=== PATIENT | female | born 1950 | race American Indian/Alaskan Native ===

== ENCOUNTER 2017-04-19 07:58 | Outpatient (CLI) | payer MEDICARE, OTHER ==
--- NOTE | 2017-04-19 09:51 | Mammography Report ---
Bilateral mammogram: Compared to 04/17/16. CAD study utilized. Findings: Predominance adipose tissue bilaterally. Focal new dense asymmetry noted in subareolar area left breast and right breast. No microcalcification. Benign axilla. No microcalcification. Impression: Focal new density cement is bilaterally. Recommend spot mag and sonographic examination. BI-RADS CATEGORY: 0 = Needs additional imaging evaluation ACR BI-RADS MAMMOGRAPHIC CODES: 0 = Needs additional imaging evaluation; 1 = Negative; 2 = Benign; 3 = Probably benign; 4 = Suspicious; 5 = Malignant; 6 = Known biopsy-proven malignancy COMMENT: 1. Dense breast tissue, i.e., adenosis, fibrocystic changes, etc., may obscure an underlying neoplasm. 2. Approximately 10% of cancers are not detected with mammography. 3. A negative mammography report should not delay biopsy if a clinically suspicious mass is present. COMMENT: Patient follow-up letters are generated in [employer].
== END 2017-04-19 07:59 | disposition home or self-care (01) ==
LOC: MAMMO 07:58
PROVIDERS: ATTEND Advanced Practice Midwife
DX: Z12.31 Encounter for screening mammogram for malignant neoplasm of breast (principal)
CPT/HCPCS: 77067; G0202

== ENCOUNTER 2017-05-03 08:20 | Outpatient (CLI) | payer MEDICARE, OTHER ==
--- NOTE | 2017-05-03 09:04 | Mammography Report ---
Bilateral mammogram: Additional views of both breasts with spot compressions were obtained for asymmetry as described on recent screening exam. The additional images however when compared to prior studies of 2015 and 2016 do not demonstrate any significant change in the parenchymal pattern and the asymmetries are no longer identified. Impression: Stable breast pattern. Recommendation: Annual mammogram followup. BI-RADS CATEGORY: 1 = Negative ACR BI-RADS MAMMOGRAPHIC CODES: 0 = Needs additional imaging evaluation; 1 = Negative; 2 = Benign; 3 = Probably benign; 4 = Suspicious; 5 = Malignant; 6 = Known biopsy-proven malignancy COMMENT: 1. Dense breast tissue, i.e., adenosis, fibrocystic changes, etc., may obscure an underlying neoplasm. 2. Approximately 10% of cancers are not detected with mammography. 3. A negative mammography report should not delay biopsy if a clinically suspicious mass is present.
== END 2017-05-03 08:21 | disposition home or self-care (01) ==
LOC: MAMMO 08:20
PROVIDERS: ATTEND Family Medicine
DX: R92.8 Other abnormal and inconclusive findings on diagnostic imaging of breast (principal)
CPT/HCPCS: 77066; G0204

== ENCOUNTER 2019-05-26 10:57 | Outpatient (CLI) | payer MEDICARE, OTHER ==
--- NOTE | 2019-05-27 08:01 | Mammography Report ---
DIGITAL SCREENING MAMMOGRAM WITH CAD, 05/26/2019 INDICATION: Routine screening mammography. TECHNIQUE: Digital bilateral 2D mammography was obtained in the craniocaudal and mediolateral obliq ue projections. This examination was interpreted with the benefit of Computer-Aided Detection analysi s. COMPARISON: 05/19/2018 FINDINGS: Breast Density: The breasts are heterogeneously dense, which may obscure small masses. There is no evidence of dominant mass, suspicious calcifications or architectural distortion in eithe r breast. IMPRESSION: No mammographic evidence of malignancy. Follow up recommendation: Routine yearly BI-RADS Category 1: Negative. A "normal" or negative report should not discourage follow up or biopsy of a clinically significant f inding. A written summary of these findings will be mailed to the patient. The patient will be entered into a mammography reporting system which will generate a reminder letter for the patient's next appointmen t at the appropriate interval. The [employer] recommends yearly mammograms starting at age 40 and continuing as l marlena as a woman is in good health. Breast MRI is recommended for women with an approximate 20-25% or greater lifetime risk of breast cancer, including women with a strong family history of breast or ova ace cancer or who have been treated for Hodgkin's disease. Signer Name: Akil Gandhi MD Signed: 05/27/2019 7:57 AM Workstation Name: [id number]
== END 2019-05-26 10:58 | disposition home or self-care (01) ==
LOC: MAMMO 10:57
PROVIDERS: ATTEND Internal Medicine
DX: Z12.31 Encounter for screening mammogram for malignant neoplasm of breast (principal); I10 Essential (primary) hypertension; K21.9 Gastro-esophageal reflux disease without esophagitis
CPT/HCPCS: 77067

== ENCOUNTER 2020-04-06 11:00 | Observation (INO) | payer MEDICARE, OTHER ==
[2020-04-06] MEDS ORDERED: ASPIRIN 325 MG TAB PO ONE (11:08)
[2020-04-06 11:35] LABS: Basophils # (Auto) 0.1 K/mm3 (0.0-0.1); Basophils % (Auto) 0.7 % (0.0-1.8); Eosinophils % (Auto) 0.2 % (0.0-4.3); Hemoglobin 12.4 gm/dl (10.1-14.3); Lymphocytes # (Auto) 3.1 K/mm3 (1.2-5.4); Lymphocytes % (Auto) 29.8 % (13.4-35.0); Mean Corpuscular HGB Conc 34 % (30-34); Mean Corpuscular Volume 92 fl (79-97); Monocytes # (Auto) 0.8 K/mm3 (0.0-0.8); Monocytes % (Auto) 7.4 % (0.0-7.3); Platelet Count 257 K/mm3 (140-440); Red Blood Count 4.04 M/mm3 (3.65-5.03); Red Cell Distribution Width 14.3 % (13.2-15.2)
[2020-04-06] MEDS ORDERED: cloNIDine 0.2 MG TAB PO ONE (11:41)
[2020-04-06] MEDS ORDERED: NITROGLYCERIN 2% OINT 1 GM TP ONE (11:41)
[2020-04-06] MEDS ORDERED: ONDANSETRON 4 MG/2 ML INJ IV ONE (11:49)
[2020-04-06] MEDS ORDERED: MORPHINE 4 MG/1 ML INJ IV ONE (11:49)
--- NOTE | 2020-04-06 11:53 | XRay Report ---
CHEST 1 VIEW INDICATION: Chest Pain. COMPARISON: None FINDINGS: Support devices: None. Heart: Within normal limits. Lungs/Pleura: No acute air space or interstitial disease. Additional findings: None. IMPRESSION: No acute findings. Signer Name: Shaw Black Jr, MD Signed: 04/06/2020 11:48 AM Workstation Name: [id number]
[2020-04-06 11:55] LABS: BUN/Creatinine Ratio 22; Blood Urea Nitrogen 35 mg/dL (7-17); Calcium 10.6 mg/dL (8.4-10.2); Hemolysis Index 1
--- NOTE | 2020-04-06 11:57 | Emergency Department Report ---
HPI - General Chief Complaint: Chest Pain Time Seen by Provider: 04/06/20 11:40 - HPI HPI: Room 3 The patient is a 69-year-old female present with a chief complaint of chest pain. The patient states this morning while at rest she developed sharp left-s ided chest pain that radiated to the left shoulder. Patient states the pain has been intermittent and she currently gives it a score of 2/10. Patient denies shortness of breath, nausea/vomiting or diaphoresis with her chest pain. The patient states her last stress test occurred 1 to 2 years ago but she is never had a cardiac catheterization ED Past Medical Hx - Past Medical History Hx Hypertension: Yes Hx Diabetes: Yes (NIDDM) Hx GERD: Yes - Surgical History Past Surgical History?: No Additional Surgical History: Right Hand - Family History Family history: no significant - Social History Smoking Status: Never Smoker Substance Use Type: None ED Review of Systems ROS: Stated complaint: CHEST PAIN Other details as noted in HPI Constitutional: denies: diaphoresis Eyes: denies: eye pain ENT: denies: throat pain Respiratory: denies: shortness of breath Cardiovascular: chest pain Endocrine: no symptoms reported Gastrointestinal: denies: nausea, vomiting Physical Exam - Physical Exam Vital Signs: Vital Signs 04/06/20 11:10 Temperature 97.8 F Pulse Rate 89 Respiratory 18 Rate Blood Pressure 197/78 O2 Sat by Pulse 92 Oximetry Physical Exam: GENERAL: The patient is well-developed well-nourished female lying on stretcher not appearing to be in acute distress. [] HEENT: Normocephalic. Atraumatic. Extraocular motions are intact. Patient has moist mucous membranes. NECK: Supple. No trachea midline CHEST/LUNGS: Clear to auscultation. There is no respiratory distress noted. HEART/CARDIOVASCULAR: Regular. There is no tachycardia. There is no gallop rub or murmur. 2+ radial pulses bilaterally ABDOMEN: Abdomen is soft, nontender. Patient has normal bowel sounds. There is no abdominal distention. SKIN: There is no rash. There is no edema. There is no diaphoresis. NEURO: The patient is awake, alert, and oriented. The patient is cooperative. The patient has normal speech MUSCULOSKELETAL: There is no evidence of acute injury. ED Course Vital Signs 04/06/20 11:10 Temperature 97.8 F Pulse Rate 89 Respiratory 18 Rate Blood Pressure 197/78 O2 Sat by Pulse 92 Oximetry ED Medical Decision Making - Lab Data Result diagrams: 04/06/20 11:18 04/06/20 11:18 Laboratory Tests 04/06/20 04/06/20 11:18 11:18 WBC 10.3 RBC 4.04 Hgb 12.4 Hct 37.0 MCV 92 MCH 31 MCHC 34 RDW 14.3 Plt Count 257 Lymph % (Auto) 29.8 [place] % (Auto) 7.4 H Eos % (Auto) 0.2 Baso % (Auto) 0.7 Lymph # 3.1 [place] # 0.8 Eos # 0.0 Baso # 0.1 Seg Neutrophils % 61.9 Seg Neutrophils # 6.3 Sodium 136 L Potassium 3.7 Chloride 95.9 L Carbon Dioxide 25 Anion Gap 19 BUN 35 H Creatinine 1.6 H Estimated GFR 39 BUN/Creatinine Ratio 22 Glucose 166 H Calcium 10.6 H Troponin T < 0.010 - EKG Data -: EKG Interpreted by Me EKG shows normal: sinus rhythm Rate: normal - EKG Data When compared to previous EKG there are: previous EKG unavailable Interpretation: other (No ischemic changes seen) - Radiology Data Radiology results: report reviewed (Chest x-ray), image reviewed (Chest x-ray) interpreted by me: Chest x-ray-no focal infiltrates, no pneumothorax, no foreign body [address] [address] XRay Report Signed Patient: BAO DIAZ MR#: [id number] : 1950 Acct:[id number] Age/Sex: 69 / F ADM Date: 04/06/20 Loc: ED Attending Dr: Ordering Physician: SHARA ALONZO MD Date of Service: 04/06/20 Pr ocedure(s): XR chest 1V ap Accession Number(s): [id number] cc: SHARA ALONZO MD Fluoro Time In Minutes: CHEST 1 VIEW INDICATION: Chest Pain. COMPARISON: None FINDINGS: Support devices: None. Heart: Within normal limits. Lungs/Pleura: No acute air space or interstitial disease. Additional findings: None. IMPRESSION: No acute findings. Signer Name: Shaw Guerrero Jr, MD Signed: 04/06/2020 11:48 AM Workstation Name: [id number] Transcribed By: TTR Dictated By: SHAW GUERRERO JR, MD Electronically Authenticated By: SHAW GUERRERO JR, MD Signed Date/Time: 04/06/20 1148 DD/ TD/TT: - Differential Diagnosis ACS, pericarditis, GERD Critical care attestation.: If time is entered above; I have spent that time in minutes in the direct care of this critically ill patient, excluding procedure time. ED Disposition Clinical Impression: Chest pain Disposition: OP ADMIT IP TO THIS HOSP Is pt being admited?: Yes Does the pt Need Aspirin: Yes Condition: Fair Instructions: Chest Pain (ED) Time of Disposition: 12:16 (Hospitalist paged) HEART Score - HEART Score History: Moderately suspicious EKG: Normal Age: > 65 Risk factors: 1-2 risk factors Troponin: < normal limit HEART Score: 4
--- NOTE | 2020-04-06 13:48 | History and Physical Report ---
History of Present Illness Chief complaint: My chest hurts History of present illness: 69 YO Female with HTN, DM, GERD presents to ED for evaluation. Patient states that she has experienced an acute onset of pain in her chest that began shortly after awakening from sleep. Patient states that the pain is 26/10, inte rmittent, radiates to the left shoulder, worsened with exertion, relieved with rest, crushing in nature. Patient acknowledges decreased exercise tolerance. Patient transported to [facility] via private vehicle for further care and evaluation. Patient seen and evaluated in the emergency department. Lab and imaging studies reviewed. Patient found to have angina, acute kidney injury, as well as clinica l findings suspicious for diastolic congestive heart failure. Patient also found to have diabetes mellitus, hypertension, as well as gastroesophageal reflux disease. Patient found to have a heart score of 4. Patient admitted to telemetry and initiated on chest pain protocol. Cardiology team consulted in ED. Patient denies fever, chills, palpitations, productive cough, skin rash, recent ill contacts, or known exposure to COVID-19. No prior admission for review. All medication listed at time of admission has been reconciled. Advanced care planning conducted in ED. Past History Past Medical History: diabetes, GERD, hypertension, other (See HPI) Past Surgical History: Other (Right hand surgery) Social history: . denies: smoking, alcohol abuse, prescription drug abuse Family history: diabetes, hypertension Medications and Allergies Allergies Allergy/AdvReac Type Severity Reaction Status Date / Time No Known Allergies Allergy Verified 04/06/20 11:05 Review of Systems Constitutional: no weight loss, no weight gain, no fever, no chills Ears, nose, mouth and throat: no ear pain, no tinnitis, no decreased hearing, no nasal congestion, no sinus pressure Breasts: no change in shape, no swelling, no mass Cardiovascular: chest pain, high blood pressure, decreased exercise tolerance, no syncope, no lightheadedness, no claudication, no leg edema Respiratory: no cough, no cough with sputum, no excessive sputum Gastrointestinal: no nausea, no vomiting, no diarrhea Genitourinary Female: no pelvic pain, no flank pain, no dysuria, no urinary frequency, no urgency Rectal: no pain, no incontinence, no bleeding Musculoskeletal: no neck stiffness, no neck pain, no shooting arm pain, no arm numbness/tingling Integumentary: no rash, no pruritis, no redness, no sores, no wounds Neurological: no paralysis, no weakness, no parathesias, no numbness, no tingling, no seizures Psychiatric: no memory loss, no change in sleep habits, no sleep disturbances, no insomnia, no hypersomnia, no change in appetite Endocrine: no cold intolerance, no heat intolerance, no polyphagia, no excessive thirst, no polyuria, no nocturia Hematologic/Lymphatic: no easy bruising, no easy bleeding Allergic/Immunologic: no urticaria, no allergic rhinitis Exam - Constitutional Vitals: Temp Pulse Resp BP Pulse Ox 97.8 F 89 18 197/78 92 04/06/20 11:10 04/06/20 11:10 04/06/20 11:10 04/06/20 11:10 04/06/20 11:10 General appearance: Present: mild distress - EENT Eyes: Present: PERRL ENT: hearing intact, clear oral mucosa - Neck Neck: Present: supple, normal ROM - Respiratory Respiratory effort: normal Respiratory: bilateral: CTA - Cardiovascular Heart Sounds: Present: S1 & S2. Absent: rub, click - Extremities Extremities: pulses symmetrical, No edema Peripheral Pulses: within normal limits - Abdominal General gastrointestinal: Present: soft, non-tender, non-distended, normal bowel sounds Female genitourinary: Present: normal - Integumentary Integumentary: Present: clear, warm, dry - Musculoskeletal Musculoskeletal: gait normal, strength equal bilaterally - Psychiatric Psychiatric: appropriate mood/affect, intact judgment & insight - Neurologic Neurologic: CNII-XII intact, moves all extremities HEART Score - HEART Score EKG: Normal Age: > 65 Risk factors: 1-2 risk factors Troponin: Troponin T < 0.010 ng/mL (0.00-0.029) 04/06/20 11:18 Troponin: < normal limit Results - Labs CBC & Chem 7: 04/06/20 11:18 04/06/20 11:18 Labs: Abnormal lab results 04/06/20 04/06/20 Range/Units 11:18 11:18 [place] % (Auto) 7.4 H (0.0-7.3) % Sodium 136 L (137-145) mmol/L Chloride 95.9 L (98-107) mmol/L BUN 35 H (7-17) mg/dL Creatinine 1.6 H (0.6-1.2) mg/dL Glucose 166 H (65-100) mg/dL Calcium 10.6 H (8.4-10.2) mg/dL Assessment and Plan - Patient Problems (1) Diastolic CHF Current Visit: Yes Status: Acute Qualifiers: Heart failure chronicity: acute Qualified Code(s): I50.31 - Acute diastolic (congestive) heart failure Plan to address problem: Strict I's/O, monitor urine output every shift, daily weight, afterload reduction, blood pressure control, echocardiogram ordered and is pending at the time of admission, cardiology consulted. (2) Angina at rest Current Visit: Yes Status: Acute Plan to address problem: Chest pain protocol: Admit to telemetry, serial cardiac enzymes, EKG, remote telemetry, cardiology team consulted in ED. (3) Hypertension Current Visit: Yes Status: Acute Qualifiers: Hypertension type: essential hypertension Qualified Code(s): I10 - Essential (primary) hypertension Plan to address problem: Monitor blood pressure every shift, continue medical management. (4) Diabetes Current Visit: Yes Status: Acute Plan to address problem: Consistent carbohydrate diet, sliding scale insulin therapy, Accu-Chek, hypoglycemia protocol. (5) Gastroesophageal reflux disease Current Visit: Yes Status: Acute Qualifiers: Esophagitis presence: without esophagitis Qualified Code(s): K21.9 - Gastro-esophageal reflux disease without esophagitis Plan to address problem: PPI therapy, supportive care. (6) DVT prophylaxis Current Visit: Yes Status: Acute Plan to address problem: SCD to bilateral lower extremities while in bed, patient is ambulatory. (7) Advance care planning Current Visit: Yes Status: Acute Plan to address problem: Disease education conducted, patient is full code, prognosis discussed, patient acknowledges understanding and agreement with care plan, +30 minutes.
[2020-04-06] MEDS ORDERED: ACETAMINOPHEN 325 MG TAB PO PRN (14:27)
[2020-04-06] MEDS ORDERED: ONDANSETRON 4 MG/2 ML INJ IV PRN (14:27)
[2020-04-06] MEDS ORDERED: NITROGLYCERIN 0.4 MG TAB SUBL SL PRN (14:27)
[2020-04-06 16:38] LABS: Chol/HDL Ratio 3.85 %
[2020-04-06] MEDS: ACETAMINOPHEN 325 MG TAB PO PRN (20:27)
[2020-04-06 20:33] LABS: Creatinine,Urine 57.9 mg/dL (0.1-20.0)
--- NOTE | 2020-04-07 14:05 | Consultation ---
History of Present Illness Consult date: 04/07/20 Requesting physician: ROSALINDA PACHECO Consult reason: chest pain History of present illness: The pt is a 69 YO female with a past medical history of HTN, DM, HLP, GERD. She is previously unknown to our practice. She presented with c/o chest pain which began yesterday AM shortly after awakening from sleep. She states that she was laying in bed watching TV when the pain occurred. She describes the pain as a left sided "jolt" of pain which lasted for several minutes and then resolved. The pain did not reoccur. She denies any SOB, palpitations, n/v, diaphoresis, dizziness or syncope. She denies any known prior cardiac issues. She reports undergoing stress test 2 years ago and this test was normal to her knowledge. Past History Past Medical History: diabetes, GERD, hypertension, hyperlipidemia, other (See HPI) Past Surgical History: Other (Right hand surgery) Social history: . denies: smoking, alcohol abuse, prescription drug abuse Family history: diabetes, hypertension Medications and Allergies Allergies Allergy/AdvReac Type Severity Reaction Status Date / Time No Known Allergies Allergy Verified 04/06/20 11:05 Active Meds: Active Medications Acetaminophen (Tylenol) 650 mg PO Q4H PRN PRN Reason: Pain MILD(1-3)/Fever >100.5/BARRETO Last Admin: 04/06/20 20:27 Dose: 650 mg Documented by: Nitroglycerin (Nitrostat) 0.4 mg SL Q5M PRN PRN Reason: Chest Pain Ondansetron HCl (Zofran) 4 mg IV Q8H PRN PRN Reason: Nausea And Vomiting Sodium Chloride (Sodium Chloride Flush Syringe 10 Ml) 10 ml IV BID [facility] Last Admin: 04/06/20 23:38 Dose: Not Given Documented by: Sodium Chloride (Sodium Chloride Flush Syringe 10 Ml) 10 ml IV PRN PRN PRN Reason: LINE FLUSH Review of Systems Constitutional: no weight loss, no weight gain, no fever, no chills, no sweats Ears, nose, mouth and throat: no ear pain, no nose pain, no sinus pressure, no sinus pain Cardiovascular: chest pain, no orthopnea, no palpitations, no rapid/irregular heart beat, no edema, no syncope, no lightheadedness, no shortness of breath, no dyspnea on exertion Respiratory: no cough, no shortness of breath, no dyspnea on exertion, no congestion, no wheezing, no pain on inspiration Gastrointestinal: no abdominal pain, no nausea, no vomiting, no diarrhea, no constipation, no change in bowel habits Genitourinary Female: no pelvic pain, no flank pain, no dysuria, no urinary frequency, no urgency Musculoskeletal: no neck stiffness, no neck pain, no shooting arm pain, no arm numbness/tingling, no low back pain, no shooting leg pain Integumentary: no rash, no pruritis, no redness, no sores, no wounds Neurological: no head injury, no paralysis, no weakness, no parathesias, no numbness, no tingling, no seizures, no syncope Psychiatric: no anxiety Endocrine: no cold intolerance, no polyphagia Hematologic/Lymphatic: no easy bruising, no easy bleeding Allergic/Immunologic: no urticaria Physical Examination Vital Signs Temp Pulse Resp BP Pulse Ox 97.8 F 89 18 197/78 92 04/06/20 11:10 04/06/20 11:10 04/06/20 11:10 04/06/20 11:10 04/06/20 11:10 General appearance: no acute distress HEENT: Positive: PERRL, Normocephaly, Mucus Membranes Moist Neck: Positive: neck supple, trachea midline Cardiac: Positive: Reg Rate and Rhythm, S1/S2 Lungs: Positive: Decreased Breath Sounds Neuro: Positive: Grossly Intact Abdomen: Negative: Tender Skin: Negative: Rash Musculoskeletal: No Pain Extremities: Absent: edema Results 04/06/20 11:18 04/06/20 11:18 Lipids 04/06/20 Range/Units 14:49 Triglycerides 97 (2-149) mg/dL Cholesterol 270 H (50-199) mg/dL HDL Cholesterol 70 H (40-59) mg/dL Cholesterol/HDL Ratio 3.85 % - Imaging and Cardiology Echo: pending EKG: report reviewed, image reviewed EKG interpretations - Telemetry EKG Rhythm: Sinus Rhythm - EKG Sinus rhythms and dysrhythmias: sinus rhythm Assessment and Plan Chest pain currently resolved. AMI r/o. Obtain echo and plan for lexiscan MPI stress test in AM. NPO after MN. The patient has been seen in conjunction with Dr. Burk who agrees with the assessment and plan of care. - Patient Problems (1) Chest pain Current Visit: Yes Status: Acute (2) Hypertension Current Visit: Yes Status: Chronic Qualifiers: Hypertension type: essential hypertension Qualified Code(s): I10 - Essential (primary) hypertension (3) Diabetes Current Visit: Yes Status: Chronic (4) Hyperlipidemia Current Visit: Yes Status: Chronic (5) Gastroesophageal reflux disease Current Visit: Yes Status: Chronic Qualifiers: Esophagitis presence: without esophagitis Qualified Code(s): K21.9 - Gas tro-esophageal reflux disease without esophagitis
--- NOTE | 2020-04-07 16:47 | Progress Note ---
Assessment and Plan Assessment and plan: 69 YO Female with HTN, DM, GERD presents to ED for evaluation. Patient states that she has experienced an acute onset of pain in her chest that began shortly after awakening from sleep. Patient states that the pain is 26/10, intermittent, radiates to the left shoulder, worsened with exertion, relieved with rest, crushing in nature. Patient acknowledges decreased exercise tolerance. Patient transported to [facility] via private vehicle for further care and evaluation. Patient seen and evaluated in the emergency department. Lab and imaging studies reviewed. Patient found to have angina, acute kidney injury, as well as clinical findings suspicious for diastolic congestive heart failure. Patient also found to have diabetes mellitus, hypertension, as well as gastroesophageal reflux disease. Patient found to have a heart score of 4. Patient admitted to telemetry and initiated on chest pain protocol. Cardiology team consulted in ED. Patient denies fever, chills, palpitations, productive cough, skin rash, recent ill contacts, or known exposure to COVID-19. No prior admission for review. All medication listed at time of admission has been reconciled. Advanced care planning conducted in ED. Chest pain currently resolved. AMI r/o. Obtain echo and plan for lexiscan MPI stress test in AM. NPO after MN. * Stable, Continue current management. Per plan as outlined by cardiology above. (1) Angina at rest Current Visit: Yes Status: Acute (2) Hypertension Current Visit: Yes Status: Chronic Qualifiers: Hypertension type: essential hypertension Qualified Code(s): I10 - Essential (primary) hypertension (3) Diabetes Current Visit: Yes Status: Chronic (4) Hyperlipidemia Current Visit: Yes Status: Chronic (5) Gastroesophageal reflux disease Current Visit: Yes Status: Chronic Qualifiers: Esophagitis presence: without esophagitis Qualified Code(s): K21.9 - Gastro-esophageal reflux disease without esophagitis (6) Diastolic CHF Current Visit: Yes Status: Acute Qualifiers: Heart failure chronicity: acute Qualified Code(s): I50.31 - Acute diastolic (congestive) heart failure Plan to address problem: Strict I's/O, monitor urine output every shift, daily weight, afterload reduction, blood pressure control, echocardiogram ordered and is pending at the time of admission, cardiology consulted. (7) Diabetes Current Visit: Yes Status: Acute Plan to address problem: Consistent carbohydrate diet, sliding scale insulin therapy, Accu-Chek, hypoglycemia protocol. (8) DVT prophylaxis Current Visit: Yes Status: Acute Plan to address problem: SCD to bilateral lower extremities while in bed, patient is ambulatory. (9) Advance care planning Current Visit: Yes Status: Acute Plan to address problem: Disease education conducted, patient is full code, prognosis discussed, patient acknowledges understanding and agreement with care plan, +30 minutes. History Interval history: Patient seen and examined, resting comfortable, still with chest pain Hospitalist Physical - Physical exam Narrative exam: General appearance: Present: No distress - EENT Eyes: Present: PERRL ENT: hearing intact, clear oral mucosa - Neck Neck: Present: supple, normal ROM - Respiratory Respiratory effort: normal Respiratory: bilateral: CTA - Cardiovascular Heart Sounds: Present: S1 & S2. Absent: rub, click - Extremities Extremities: pulses symmetrical, No edema Peripheral Pulses: within normal limits - Abdominal General gastrointestinal: Present: soft, non-tender, non-distended, normal bowel sounds Female genitourinary: Present: normal - Integumentary Integumentary: Present: clear, warm, dry - Musculoskeletal Musculoskeletal: gait normal, strength equal bilaterally - Psychiatric Psychiatric: appropriate mood/affect, intact judgment & insight - Neurologic Neurologic: CNII-XII intact, moves all extremities - Constitutional Vitals: Temp Pulse Resp BP Pulse Ox 98.0 F 83 18 148/68 95 04/07/20 12:14 04/07/20 12:14 04/07/20 12:14 04/07/20 12:14 04/07/20 12:14 General appearance: Present: no acute distress HEART Score - HEART Score History: Highly suspicious EKG: Normal Age: > 65 Risk factors: 1-2 risk factors Troponin: Troponin T < 0.010 ng/mL (0.00-0.029) 04/06/20 18:30 Troponin: < normal limit HEART Score: 5 Results - Labs CBC & Chem 7: 04/06/20 11:18 04/06/20 11:18 Labs: Laboratory Last Values WBC 10.3 K/mm3 (4.5-11.0) 04/06/20 11:18 RBC 4.04 M/mm3 (3.65-5.03) 04/06/20 11:18 Hgb 12.4 gm/dl (10.1-14.3) 04/06/20 11:18 Hct 37.0 % (30.3-42.9) 04/06/20 11:18 MCV 92 fl (79-97) 04/06/20 11:18 MCH 31 pg (28-32) 04/06/20 11:18 MCHC 34 % (30-34) 04/06/20 11:18 RDW 14.3 % (13.2-15.2) 04/06/20 11:18 Plt Count 257 K/mm3 (140-440) 04/06/20 11:18 Lymph % (Auto) 29.8 % (13.4-35.0) 04/06/20 11:18 Vance % (Auto) 7.4 % (0.0-7.3) H 04/06/20 11:18 Eos % (Auto) 0.2 % (0.0-4.3) 04/06/20 11:18 Baso % (Auto) 0.7 % (0.0-1.8) 04/06/20 11:18 Lymph # 3.1 K/mm3 (1.2-5.4) 04/06/20 11:18 Vance # 0.8 K/mm3 (0.0-0.8) 04/06/20 11:18 Eos # 0.0 K/mm3 (0.0-0.4) 04/06/20 11:18 Baso # 0.1 K/mm3 (0.0-0.1) 04/06/20 11:18 Seg Neutrophils % 61.9 % (40.0-70.0) 04/06/20 11:18 Seg Neutrophils # 6.3 K/mm3 (1.8-7.7) 04/06/20 11:18 Sodium 136 mmol/L (137-145) L 04/06/20 11:18 Potassium 3.7 mmol/L (3.6-5.0) 04/06/20 11:18 Chloride 95.9 mmol/L (98-107) L 04/06/20 11:18 Carbon Dioxide 25 mmol/L (22-30) 04/06/20 11:18 Anion Gap 19 mmol/L 04/06/20 11:18 BUN 35 mg/dL (7-17) H 04/06/20 11:18 Creatinine 1.6 mg/dL (0.6-1.2) H 04/06/20 11:18 Estimated GFR 39 ml/min 04/06/20 11:18 BUN/Creatinine Ratio 22 % 04/06/20 11:18 Glucose 166 mg/dL (65-100) H 04/06/20 11:18 Calcium 10.6 mg/dL (8.4-10.2) H 04/06/20 11:18 Troponin T < 0.010 ng/mL (0.00-0.029) 04/06/20 18:30 NT-Pro-B Natriuret Pep 36.28 pg/mL (0-900) 04/06/20 14:49 Triglycerides 97 mg/dL (2-149) 04/06/20 14:49 Cholesterol 270 mg/dL (50-199) H 04/06/20 14:49 LDL Cholesterol Direct 189 mg/dL (50-130) H 04/06/20 14:49 HDL Cholesterol 70 mg/dL (40-59) H 04/06/20 14:49 Cholesterol/HDL Ratio 3.85 % 04/06/20 14:49 Urine Creatinine 57.9 mg/dL (0.1-20.0) H 04/06/20 20:15 Urine Sodium 97 mmol/L 04/06/20 20:15 - Diagnostic Impressions Diagnostic Impressions: Echocardiogram 04/06/20 14:29 Transthoracic Echocardiogram Indication: Chest pain BP: 133/72 HR: 71 Conclusions *The left ventricular chamber size is normal. *Global left ventricular wall motion and contractility are within normal limits. *Global left ventricular systolic function is normal. *The estimated ejection fraction is 55-60%. *The left atrial chamber size is normal. *The right ventricular systolic pressure is calculated at 25 mmHg. Findings Left Ventricle: The left ventricular chamber size is normal. Global left ventricular wall motion and contractility are within normal limits. Global left ventricular systolic function is normal. The estimated ejection fraction is 55-60%. Abnormal left ventricular diastolic filling is observed, consistent with impaired relaxation. Left Atrium: The left atrial chamber size is normal. Right Ventricle: The right ventricular cavity size is normal. Right Atrium: The right atrial cavity size is normal. Aortic Valve: The aortic valve leaflets are mildly thickened. There is trace of aortic regurgitation. Mitral Valve: The mitral valve leaflets are mildly thickened.Very mild anterior leaflet prolapse noted. There is trace of mitral regurgitation. Tricuspid Valve: The tricuspid valve leaflets are normal. There is trace tricuspid regurgitation. The right ventricular systolic pressure is calculated at 25 mmHg. Pulmonic Valve: The pulmonic valve appears normal. There is trace pulmonic regurgitation. Pericardium: There is no pericardial effusion. Aorta: The aorta appears normal. Venous: The inferior vena cava appears normal. Measurements Chambers 2D Name Value Normal Range IVSd (2D) 1.03 cm (0.6 - 1.1) LVPWd (2D) 0.96 cm (0.6 - 1.1) LVIDd (2D) 4 cm (3.7 - 5.6) LVIDs (2D) 2.13 cm (2 - 3.8) LV FS (2D) 46.82 % - EF Teichholz (2D) 78.73 % - Ao root diameter (2D) 2.95 cm (2 - 3.7) Volumes/Mass Name Value Normal Range LA ESV SP 4CH (A/L) 13.29 ml - LA ESV SP 2CH (A/L) 25.7 ml - LA ESV BP (A/L) 19.19 ml - LA ESV BP (A/L) index 10.66 ml/m2 - LA ESV SP 4CH (MOD) 12.78 ml - LA ESV SP 2CH (MOD) 25.59 ml - LA ESV BP (MOD) 18.72 ml - LA ESV BP (MOD) index 10.4 ml/m2 - Diastolic/Systolic Function Name Value Normal Range MV E-wave Vmax 0.43 m/sec - MV deceleration time 286.5 msec - MV A-wave Vmax 0.71 m/sec - MV E:A ratio 0.61 ratio - Aortic Valve Name Value Normal Range AV Vmax 1.14 m/sec - AV VTI 24.19 cm - AV peak gradient 5.21 mmHg - AV mean gradient 2.75 mmHg - LVOT diameter 2.02 cm - LVOT Vmax 0.85 m/sec - LVOT VTI 15.74 cm - LVOT peak gradient 2.92 mmHg - LVOT mean gradient 1.44 mmHg - SV LVOT 50.47 ml - NYDIA (continuity Vmax) 2.4 cm2 - NYDIA (continuity VTI) 2.09 cm2 - AR PHT 1167.22 msec - AR peak gradient 31.64 mmHg - Mitral Valve Name Value Normal Range MR Vmax 3.46 m/sec - Tricuspid Valve Name Value Normal Range TR Vmax 2.38 m/sec - TR peak gradient 22 mmHg - RAP 3 mmHg - RVSP 25 mmHg - Pulmonic Valve/Qp:Qs Name Value Normal Range PV Vmax 0.67 m/sec - PV peak gradient 1.77 mmHg - HI end-diastolic Vmax 0.9 m/sec - PV acceleration time 110.37 msec - Espinal/IV: Voiding Method Toilet IV Catheter Type [Left INT / Saline Lock Antecubital] Active Medications - Current Medications Current Medications: Generic Name Dose Route Start Last Admin Trade Name Freq PRN Reason Stop Dose Admin Acetaminophen 650 mg 04/06/20 14:27 04/06/20 20:27 Tylenol PO 650 mg Q4H PRN Administration Pain MILD(1-3)/Fever >100.5/BARRETO Nitroglycerin 0.4 mg 04/06/20 14:27 Nitrostat SL Q5M PRN Chest Pain Ondansetron HCl 4 mg 04/06/20 14:27 Zofran IV Q8H PRN Nausea And Vomiting Sodium Chloride 10 ml 04/06/20 22:00 04/07/20 14:10 Sodium Chloride Flush Syringe 10 Ml IV 10 ml BID PREMA Administration Sodium Chloride 10 ml 04/06/20 14:27 Sodium Chloride Flush Syringe 10 Ml IV PRN PRN LINE FLUSH
[2020-04-07 17:58] LABS: Calcium 10.2 mg/dL (8.4-10.2)
[2020-04-07] MEDS: ACETAMINOPHEN 325 MG TAB PO PRN (21:25)
[2020-04-08] MEDS ORDERED: REGADENOSON 0.4 MG/5 ML INJ IV ONE ×2 (07:23→07:28)
--- NOTE | 2020-04-08 08:50 | Discharge Summary ---
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 Patient states that she has experienced an acute onset of pain in her chest that began shortly after awakening from sleep. Patient states that the pain is 26/10, intermittent, radiates to the left shoulder, worsened with exertion, relieved with rest, crushing in nature. Patient acknowledges decreased exercise tolerance. Patient transported to [facility] via private vehicle for further care and evaluation. Patient seen and evaluated in the emergency department. Lab and imaging studies reviewed. Patient found to have angina, acute kidney injury, as well as clinical findings suspicious for diastolic congestive heart failure. Patient also found to have diabetes mellitus, hypertension, as well as gastroesophageal reflux disease. Patient found to have a heart score of 4. Patient admitted to telemetry and initiated on chest pain protocol. Cardiology team consulted in ED. Patient denies fever, chills, palpitations, productive cough, skin rash, recent ill contacts, or known exposure to COVID-19. No prior admission for review. All medication listed at time of admission has been reconciled. Advanced care planning conducted in ED. Chest pain currently resolved. AMI r/o. Obtain echo and plan for lexiscan MPI stress test in AM. NPO after MN. * Stable, Continue current management. Per plan as outlined by cardiology above. 04/08 * Patient today is chest pain free, Per cardiology, stress test is negative. will discharge patient. (1) Angina at rest Current Visit: Yes Status: Acute (2) Hypertension Current Visit: Yes Status: Chronic Qualifiers: Hypertension type: essential hypertension Qualified Code(s): I10 - Essential (primary) hypertension (3) Diabetes Current Visit: Yes Status: Chronic (4) Hyperlipidemia Current Visit: Yes Status: Chronic (5) Gastroesophageal reflux disease Current Visit: Yes Status: Chronic Qualifiers: Esophagitis presence: without esophagitis Qualified Code(s): K21.9 - Gastro-esophageal reflux disease without esophagitis (6) Diastolic CHF Current Visit: Yes Status: Acute Qualifiers: Heart failure chronicity: acute Qualified Code(s): I50.31 - Acute diastolic (congestive) heart failure Plan to address problem: Strict I's/O, monitor urine output every shift, daily weight, afterload reduction, blood pressure control, echocardiogram ordered and is pending at the time of admission, cardiology consulted. (7) Diabetes Current Visit: Yes Status: Acute Plan to address problem: Consistent carbohydrate diet, sliding scale insulin therapy, Accu-Chek, hypoglycemia protocol. (8) DVT prophylaxis Current Visit: Yes Status: Acute Plan to address problem: SCD to bilateral lower extremities while in bed, patient is ambulatory. (9) Advance care planning Current Visit: Yes Status: Acute Plan to address problem: Disease education conducted, patient is full code, prognosis discussed, patient acknowledges understanding and agreement with care plan, +30 minutes. Disposition: DC-01 TO HOME OR SELFCARE Time spent for discharge: 35-minute Core Measure Documentation - Palliative Care Palliative Care/ Comfort Measures: Not Applicable - Core Measures Any of the following diagnoses?: none Exam - Physical Exam Narrative exam: VITAL SIGNS: Reviewed. GENERAL: The patient appears normally developed, Vital signs as documented. HEAD: No signs of head trauma. EYES: Pupils are equal. Extraocular motions intact. EARS: Hearing grossly intact. MOUTH: Oropharynx is normal. NECK: No adenopathy, no JVD. CHEST: Chest with clear breath sounds bilaterally. No wheezes, rales, or rhonchi. CARDIAC: Regular rate and rhythm. S1 and S2, without murmurs, gallops, or rubs. VASCULAR: No Edema. Peripheral pulses normal and equal in all extremities. ABDOMEN: Soft, non tender and non distended. No rebound or guarding, and no masses palpated. Bowel Sounds normal. MUSCULOSKELETAL: Good range of motion of all major joints. Extremities without clubbing, cyanosis or edema. NEUROLOGIC EXAM: Alert and oriented x 3 No focal sensory or strength deficits. Speech normal. Follows commands. PSYCHIATRIC: Mood normal. SKIN: detail exam as documented in skin assessment - Constitutional Vitals: Temp Pulse Resp BP Pulse Ox 98.0 F 66 20 170/69 92 04/08/20 07:33 04/08/20 07:33 04/08/20 07:33 04/08/20 07:33 04/08/20 07:33 Plan Activity: advance as tolerated, fall precautions Diet: low fat Special Instructions: record daily weights, record daily BP diary Follow up with: PRIMARY CAREMD [Primary Care Provider] - 7 Days SOO NIEVES MD [Staff Physician] - 14 Days
--- NOTE | 2020-04-08 11:08 | Treadmill Report ---
CLASSICAL MYOCARDIAL PERFUSION IMAGING REPORT The patient is a 69-year-old female with history of hypertension, diabetes mellitus, who was admitted with chest pains. The baseline EKG showed sinus rhythm and troponins were unremarkable. Underwent a pharmacological stress test using IV regadenoson as the vasodilator. Baseline EKG showed sinus rhythm, within normal limits. No significant EKG changes with vasodilation. No arrhythmia noted. No chest pain. The patient received technetium 99m sestamibi at rest and resting perfusion images were obtained. This is followed by obtaining a post-vasodilation images using the same agent. Also, gated study was performed post-vasodilation. There is normal perfusion noted post-stress and during rest in all segments. The patient's end diastolic volume and end-systolic volumes are normal with normal wall motion and wall thickening and calculated ejection fraction of 76%. Transient ischemic dilation ratio was found to be 1.06. FINAL IMPRESSION: 1. The patient tolerated IV regadenoson well. 2. No EKG changes to suggest ischemia. 3. No chest pain. 4. No arrhythmia. 5. Blood pressure response is appropriate. Myocardial perfusion images using technetium 99m were found to be normal both post-vasodilation and at rest. 6. Normal left ventricular systolic function of 76% noted. JOB# [id number] JEFFRY/DEMARCUS
--- NOTE | 2020-04-08 11:25 | Progress Note ---
Assessment and Plan Chest pain currently resolved. AMI r/o. tte reviewed - EF 55-60%, no significant abnormalities. S/p lexiscan MPI stress test today which was negative. Currently stable cardiac status. Pt may discharge from cardiology standpoint. Recommend pt follow up in our office with Dr. Burk within 2 weeks ([phone]). The patient has been seen in conjunction with Dr. Burk who agrees with the assessment and plan of care. - Patient Problems (1) Chest pain Current Visit: Yes Status: Resolved (2) Hypertension Current Visit: Yes Status: Chronic Qualifiers: Hypertension type: essential hypertension Qualified Code(s): I10 - Essential (primary) hypertension (3) Diabetes Current Visit: Yes Status: Chronic (4) Hyperlipidemia Current Visit: Yes Status: Chronic (5) Gastroesophageal reflux disease Current Visit: Yes Status: Chronic Qualifiers: Esophagitis presence: without esophagitis Qualified Code(s): K21.9 - Gastro-esophageal reflux disease without esophagitis Subjective Date of service: 04/08/20 Principal diagnosis: chest pain Interval history: pt resting comfortably in bed, for stress test today, no current complaints. in SR on tele. Objective Last Vital Signs Temp 98.0 F 04/08/20 07:33 Pulse 66 04/08/20 07:33 Resp 20 04/08/20 07:33 BP 170/69 04/08/20 07:33 Pulse Ox 92 04/08/20 07:33 - Physical Examination General: No Apparent Distress HEENT: Positive: PERRL, Normocephaly, Mucus Membranes Moist Neck: Positive: neck supple, trachea midline Cardiac: Positive: Reg Rate and Rhythm, S1/S2 Lungs: Positive: clear to auscultation Neuro: Positive: Grossly Intact Abdomen: Negative: Tender Skin: Negative: Rash Musculoskeletal: No Pain Extremities: Absent: edema - Labs and Meds Comprehensive Metabolic Panel 04/07/20 Range/Units 16:57 Sodium 139 (137-145) mmol/L Potassium 4.3 (3.6-5.0) mmol/L Chloride 98.2 (98-107) mmol/L Carbon Dioxide 27 (22-30) mmol/L BUN 29 H (7-17) mg/dL Creatinine 1.2 (0.6-1.2) mg/dL Glucose 135 H (65-100) mg/dL Calcium 10.2 (8.4-10.2) mg/dL - Imaging and Cardiology EKG: report reviewed, image reviewed Echo: pending - EKG Sinus rhythms and dysrhythmias: sinus rhythm
[2020-04-08 11:32] VITALS: BP 103/57
== END 2020-04-08 13:49 | disposition home or self-care (01) ==
LOC: ED 11:00 → 4A 14:27
PROVIDERS: ADMIT Internal Medicine; ATTEND Internal Medicine
DX: I20.9 Angina pectoris, unspecified (principal); I11.0 Hypertensive heart disease with heart failure; I50.31 Acute diastolic (congestive) heart failure; E11.9 Type 2 diabetes mellitus without complications; K21.9 Gastro-esophageal reflux disease without esophagitis; E78.5 Hyperlipidemia, unspecified; Z79.899 Other long term (current) drug therapy
CPT/HCPCS: 36415; 71045; 78452; 80048; 80061; 82570; 83880; 84300; 84484; 85025; 93005; 93017; 93306; 96374; 96375; 99285; A9502; G0378; J2270; J2405; J2785

== ENCOUNTER 2020-05-30 09:22 | Outpatient (CLI) | payer MEDICARE, OTHER ==
--- NOTE | 2020-05-30 10:40 | Mammography Report ---
DIGITAL SCREENING MAMMOGRAM WITH CAD, 05/30/2020 CLINICAL INFORMATION / INDICATION: Routine screening mammography. TECHNIQUE: Digital bilateral 2D mammography was obtained in the craniocaudal and mediolateral obliqu e projections. This examination was interpreted with the benefit of Computer-Aided Detection analysis . COMPARISON: 05/26/2019, 05/19/2018 FINDINGS: Breast Density: The breasts are heterogeneously dense, which may obscure small masses. No dominant mass, suspicious calcifications, or architectural distortion in either breast. IMPRESSION: No mammographic evidence of malignancy. Follow up recommendation: Routine yearly BI-RADS Category 1: Negative. A "normal" or negative report should not discourage follow up or biopsy of a clinically significant f inding. A written summary of these findings will be mailed to the patient. The patient will be entered into a mammography reporting system which will generate a reminder letter for the patient's next appointmen t at the appropriate interval. The [employer] recommends yearly mammograms starting at age 40 and continuing as l marlena as a woman is in good health. Breast MRI is recommended for women with an approximate 20-25% or greater lifetime risk of breast cancer, including women with a strong family history of breast or ova ace cancer or who have been treated for Hodgkin's disease. Signer Name: Solo Baeza MD Signed: 05/30/2020 10:36 AM Workstation Name: [email or web address]
== END 2020-05-30 09:23 | disposition home or self-care (01) ==
LOC: MAMMO 09:22
PROVIDERS: ATTEND Internal Medicine
DX: Z12.31 Encounter for screening mammogram for malignant neoplasm of breast (principal)
CPT/HCPCS: 77067

== ENCOUNTER 2021-06-29 09:43 | Outpatient (CLI) | payer MEDICARE, OTHER ==
--- NOTE | 2021-06-30 16:27 | Mammography Report ---
DIGITAL SCREENING MAMMOGRAM WITH CAD, 06/29/2021 CLINICAL INFORMATION / INDICATION: Routine screening mammography. TECHNIQUE: Digital bilateral 2D mammography was obtained in the craniocaudal and mediolateral obliqu e projections. This examination was interpreted with the benefit of Computer-Aided Detection analysis . COMPARISON: 05/30/2020, 05/26/2019, 12/08/2014 FINDINGS: Breast Density: The breasts are heterogeneously dense, which may obscure small masses. No dominant mass, suspicious calcifications, or architectural distortion in either breast. No interval change. IMPRESSION: No mammographic evidence of malignancy. Follow up recommendation: Routine yearly BI-RADS Category 1: Negative. A "normal" or negative report should not discourage follow up or biopsy of a clinically significant f inding. A written summary of these findings will be mailed to the patient. The patient will be entered into a mammography reporting system which will generate a reminder letter for the patient's next appointmen t at the appropriate interval. The [employer] recommends yearly mammograms starting at age 40 and continuing as l marlena as a woman is in good health. Breast MRI is recommended for women with an approximate 20-25% or greater lifetime risk of breast cancer, including women with a strong family history of breast or ova ace cancer or who have been treated for Hodgkin's disease. Signer Name: Merna Rey MD Signed: 06/30/2021 4:23 PM Workstation Name: [email or web address]
== END 2021-06-29 09:44 | disposition home or self-care (01) ==
LOC: MAMMO 09:43
PROVIDERS: ATTEND Internal Medicine
DX: Z12.31 Encounter for screening mammogram for malignant neoplasm of breast (principal); N64.89 Other specified disorders of breast
CPT/HCPCS: 77067